=== PATIENT | female | born 1980 | race Caucasian/White ===

== ENCOUNTER 2018-05-18 12:18 | Emergency (ER) | payer OTHER, MEDICAID | END 2018-05-18 14:58 | disposition home or self-care (01) | LOC: FTE 12:18 | DX: S39.92XA Unspecified injury of lower back, initial encounter (principal); W07.XXXA Fall from chair, initial encounter; Y92.9 Unspecified place or not applicable | CPT/HCPCS: 72100; 81025; 99283-25 ==